=== PATIENT | male | born 1990 | race American Indian/Alaskan Native ===

== ENCOUNTER 2016-12-16 04:09 | Emergency (ER) | payer SELFPAY ==
[2016-12-16] MEDS ORDERED: Lidocaine 2% Viscous Solution 15 ML Cup PO ONE (04:10)
[2016-12-16] MEDS ORDERED: Clindamycin HCl 150 MG Cap PO ONE (04:10)
[2016-12-16] MEDS ORDERED: Acetaminophen/HYDROcodone 325-10 MG Tab PO ONE (04:10)
[2016-12-16 04:17] VITALS: BP 119/76
--- NOTE | 2016-12-16 05:10 | EDM.PDOC ---
ED HPI GENERAL MEDICAL PROBLEM - General Chief Complaint: ENT Problem Stated Complaint: [id number] TOOTH Time Seen by Provider: 12/16/16 04:20 Source of Information: Reports: Patient History Limitations: Reports: No Limitations - History of Present Illness INITIAL COMMENTS - FREE TEXT/NARRATIVE: c/o right lower dental abscess. Seen on and started on amoxicllin, continued pain with alternating tylenol and ibuprofen feels face more swollen Right Lower Tooth/Teeth Pain Score (Numeric/FACES): 7 - Related Data Allergies Allergy/AdvReac Type Severity Reaction Status Date / Time No Known Allergies Allergy Verified 12/17/16 02:11 Home Meds: Home Meds Amoxicillin [IJP: Amoxicillin] 500 mg PO TID 12/16/16 [History] Past Medical History - Past Health History Medical/Surgical History: Denies Medical/Surgical History HEENT History: Reports: None Cardiovascular History: Reports: None Respiratory History: Reports: None Gastrointestinal History: Reports: None Genitourinary History: Reports: None Musculoskeletal History: Reports: None Neurological History: Reports: None Psychiatric History: Reports: None Endocrine/Metabolic History: Reports: None Hematologic History: Reports: None Immunologic History: Reports: None Oncologic (Cancer) History: Reports: None Dermatologic History: Reports: None - Infectious Disease History Infectious Disease History: Reports: None - Past Surgical History Head Surgeries/Procedures: Reports: None HEENT Surgical History: Reports: Eye Surgery Cardiovascular Surgical History: Reports: None Respiratory Surgical History: Reports: None GI Surgical History: Reports: None Male Surgical History: Reports: None Endocrine Surgical History: Reports: None Neurological Surgical History: Reports: None Musculoskeletal Surgical History: Reports: None Oncologic Surgical History: Reports: None Dermatological Surgical History: Reports: None Social & Family History - Family History Family Medical History: Noncontributory - Tobacco Use Smoking Status *Q: Current Every Day Smoker Years of Tobacco use: 2 Packs/Tins Daily: 0.5 Used Tobacco, but Quit: No Second Hand Smoke Exposure: No - Caffeine Use Caffeine Use: Reports: Coffee, Soda - Alcohol Use Days Per Week of Alcohol Use: 0 - Recreational Drug Use Recreational Drug Use: No - Living Situation & Occupation Living situation: Reports: Other Occupation: Employed ED ROS ENT - Review of Systems Review Of Systems: ROS reveals no pertinent complaints other than HPI. ED EXAM, ENT - Physical Exam Exam: See Below Exam Limited By: No Limitations General Appearance: Alert, Mild Distress Eye Exam: Bilateral Eye: EOMI Ears: Normal External Exam, Normal Canal Nose: Normal Inspection Mouth/Throat: Dental Abcess, Dental Pain, Dental Tenderness (right lower molar, gum swollen), Gum Swelling. No: Dental Trauma, Drooling Head: Atraumatic, Normocephalic Neck: Normal Inspection. No: Lymphadenopathy (L), Lymphadenopathy (R) Respiratory/Chest: No Respiratory Distress, Lungs Clear Cardiovascular: Regular Rate, Rhythm, Tachycardia GI/Abdominal: Normal Bowel Sounds Back: Normal Inspection Extremities: Normal Inspection Neurological: Alert, Oriented Skin: Warm, Dry Course - Vital Signs Last Recorded V/S: Last Vital Signs Temp 97.5 F 12/16/16 04:16 Pulse 109 H 12/16/16 04:16 Resp 17 12/16/16 04:16 BP 119/76 12/16/16 04:16 Pulse Ox 100 12/16/16 04:16 - Orders/Labs/Meds Meds: Medications Discontinued Medications Generic Name Dose Route Start Last Admin Trade Name Chance PRN Reason Stop Dose Admin Hydrocodone Bitart/Acetaminophen Confirm 12/16/16 05:14 [place] 325-10 Mg Administered 12/16/16 05:15 Dose 1 tab .ROUTE .STK-MED ONE Hydrocodone Bitart/Acetaminophen 1 tab 12/16/16 04:10 [place] 325-10 Mg PO 12/16/16 04:11 .STK-MED ONE Clindamycin HCl Confirm 12/16/16 05:15 Cleocin Administered 12/16/16 05:16 Dose 300 mg .ROUTE .STK-MED ONE Clindamycin HCl 300 mg 12/16/16 04:10 Cleocin PO 12/16/16 04:11 .STK-MED ONE Lidocaine HCl Confirm 12/16/16 05:15 Xylocaine 2% Viscous Administered 12/16/16 05:16 Dose 15 ml .ROUTE .STK-MED ONE Lidocaine HCl 15 ml 12/16/16 04:10 Xylocaine 2% Viscous PO 12/16/16 04:11 .STK-MED ONE Departure - Departure Time of Disposition: 05:03 Disposition: Home, Self-Care 01 Condition: Fair Clinical Impression: Dental abscess, Dental caries extending into dentin - Discharge Information Instructions: Dental Abscess Referrals: Buckmier,Antoinette F, WAST[facility] RECLAIMER [Primary Care Provider] - Forms: ED Department Discharge Additional Instructions: Stop amoxicillin Clindamycin 300mg every 6 hours for one week Viscous Lidocaine to are around affected tooth 4 times daily as needed Hydrocodone 10/ one at bed #1 Continue to alternate [id number] with Ibuprofen 600mg every 4 hours as needed for pain Follow up with dentist and referral status on Saturday
[2016-12-16] MEDS ORDERED: Acetaminophen/HYDROcodone 325-10 MG Tab ONE (05:14)
[2016-12-16] MEDS ORDERED: Clindamycin HCl 150 MG Cap ONE (05:15)
[2016-12-16] MEDS ORDERED: Lidocaine 2% Viscous Solution 15 ML Cup ONE (05:15)
== END 2016-12-16 05:20 | disposition home or self-care (01) ==
LOC: DL.ED 04:09
DX: K04.7 Periapical abscess without sinus (principal); K02.9 Dental caries, unspecified; F17.210 Nicotine dependence, cigarettes, uncomplicated; Z98.890 Other specified postprocedural states
CPT/HCPCS: 99282; A9270-GY

== ENCOUNTER 2016-12-17 00:17 | Emergency (ER) | payer SELFPAY | END 2016-12-17 00:54 | disposition left against medical advice (07) | LOC: DL.ED 00:17 | DX: Z53.21 Procedure and treatment not carried out due to patient leaving prior to being seen by health care provider (principal) ==

== ENCOUNTER 2017-01-05 17:19 | Emergency (ER) | payer SELFPAY ==
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
[2017-01-05 16:54] LABS: CHLORIDE,CL 103 mmol/L (101-111); SODIUM,NA 141 mmol/L (135-145)
[~2017-01-05 17:19] MED LIST: Diphtheria,Pertussis(Acell),Tetanus Vaccine 0.5 ML SDV IM ONE; HYDROmorphone 1 MG/ML Syringe IVPUSH ONE; Sodium Chloride 0.9% 1,000 ML IV ONE; Sodium Chloride 0.9% 10 ML Syringe FLUSH PRN; ceFAZolin 2 GM in Premix Bag 1 BAG IV ONE
[2017-01-05] MEDS ORDERED: HYDROmorphone 1 MG/ML Syringe IVPUSH ONE (17:41)
== END 2017-01-05 18:08 ==
LOC: DL.ED 17:19
DX: S82.252B Displaced comminuted fracture of shaft of left tibia, initial encounter for open fracture type I or II (principal); S82.232A Displaced oblique fracture of shaft of left tibia, initial encounter for closed fracture; S82.832A Other fracture of upper and lower end of left fibula, initial encounter for closed fracture; S90.01XA Contusion of right ankle, initial encounter; F17.210 Nicotine dependence, cigarettes, uncomplicated; W20.8XXA Other cause of strike by thrown, projected or falling object, initial encounter; Z23 Encounter for immunization
CPT/HCPCS: 36415; 73590; 73600; 80053; 83605; 85025; 90715; 96365; 96375; 96376; 99285; J0690; J1170; J7030; 99284

== ENCOUNTER 2017-01-13 21:49 | Emergency (ER) | payer SELFPAY ==
[2017-01-13] MEDS ORDERED: Acetaminophen/HYDROcodone 325-10 MG Tab PO ONE (21:50)
[2017-01-13 22:03] VITALS: BP 174/91
[2017-01-13] MEDS ORDERED: diphenhydrAMINE 25 MG Tab PO ONE (23:02)
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
[2017-01-13] MEDS ORDERED: Acetaminophen/HYDROcodone 325-10 MG Tab ONE (23:12)
== END 2017-01-13 23:19 | disposition home or self-care (01) ==
LOC: DL.ED 21:49
DX: L29.9 Pruritus, unspecified (principal); T40.4X5A Adverse effect of other synthetic narcotics, initial encounter; F17.210 Nicotine dependence, cigarettes, uncomplicated; S82.202D Unspecified fracture of shaft of left tibia, subsequent encounter for closed fracture with routine healing; W18.11XD Fall from or off toilet without subsequent striking against object, subsequent encounter; Z88.5 Allergy status to narcotic agent
CPT/HCPCS: 99283; A9270

== ENCOUNTER 2017-08-11 22:38 | Emergency (ER) | payer SELFPAY ==
[2017-08-11] MEDS ORDERED: Ketorolac 30 MG/ML SDV IM ONE (23:13)
[2017-08-11] MEDS ORDERED: Cyclobenzaprine 10 MG Tab PO ONE (23:14)
[2017-08-11] MEDS ORDERED: Acetaminophen/HYDROcodone 325-10 MG Tab PO ONE (23:14)
[2017-08-11 23:16] VITALS: BP 155/77
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
== END 2017-08-12 00:07 | disposition home or self-care (01) ==
LOC: DL.ED 22:38
DX: S86.912A Strain of unspecified muscle(s) and tendon(s) at lower leg level, left leg, initial encounter (principal); S82.202D Unspecified fracture of shaft of left tibia, subsequent encounter for closed fracture with routine healing; F17.200 Nicotine dependence, unspecified, uncomplicated; Z88.5 Allergy status to narcotic agent; X50.9XXA Other and unspecified overexertion or strenuous movements or postures, initial encounter
CPT/HCPCS: 73590; 96372; 99283; A9270; J1885

== ENCOUNTER 2020-06-14 05:24 | Emergency (ER) | payer SELFPAY ==
[2020-06-14] MEDS ORDERED: Bacitracin Oint 1 GM U/D Packet TOP ONE (05:42)
[2020-06-14] MEDS ORDERED: Lidocaine 1% 30 ML SDV INJECT ONE (05:42)
[2020-06-14 05:55] VITALS: BP 145/81; PULSE 99
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
== END 2020-06-14 06:25 | disposition home or self-care (01) ==
LOC: DL.ED 05:24
DX: S61.411A Laceration without foreign body of right hand, initial encounter (principal); Z88.5 Allergy status to narcotic agent; Z72.0 Tobacco use; W29.3XXA Contact with powered garden and outdoor hand tools and machinery, initial encounter
CPT/HCPCS: 12002; 99282-25

== ENCOUNTER 2024-07-27 10:03 | Emergency (ER) | payer BC, OTHER ==
[2024-07-27 11:00] LABS: BASOPHILS PERCENT AUTO 0.3 % (0.0-1.0); HEMATOCRIT 43.5 % (40.0-54.0); HEMOGLOBIN 14.9 g/dL (14.0-18.0); LYMPHOCYTES PERCENT AUTO 33.1 % (20.5-50.1); MEAN CORPUSCULAR HEMOGLOBIN 29.8 pg (27.0-34.0); MEAN CORPUSCULAR HGB CONC 34.3 g/dL (33.0-35.0); MONOCYTES PERCENT AUTO 11.8 % (2-8); NEUTROPHILS PERCENT AUTO 51.8 % (42.2-75.2); PLATELET COUNT,PLT 230 10^3/uL (150-450)
[2024-07-27] MEDS: Ondansetron 4 MG/2 ML SDV IVPUSH ONE (11:02)
[2024-07-27] MEDS: Morphine 4 MG/ML Syringe IVPUSH ONE (11:02)
[2024-07-27] MEDS: Sodium Chloride 0.9% 1,000 ML IV SCH (11:03)
[2024-07-27 11:09] LABS: A/G RATIO 0.8; ALBUMIN 3.7 g/dL (3.4-5.0); ANION GAP 16.5 mEq/L (7-13); BILIRUBIN TOTAL 0.5 mg/dL (0.2-1.0); BUN/CREATININE RATIO 14.6 (No establ ref range); CREATININE 0.96 mg/dL (0.70-1.30); EST CRCL DRUG DOSING (CG) 122.53 mL/min; POTASSIUM,K 3.5 mmol/L (3.5-5.1); PROTEIN TOTAL,TP 8.1 g/dL (6.4-8.2)
[2024-07-27] MEDS: Buprenorphine/Naloxone 8-2 MG Tab.SL SL ONE (11:17)
[2024-07-27 13:21] VITALS: BP 139/85; PULSE 72
== END 2024-07-27 13:54 | disposition home or self-care (01) ==
LOC: DL.ED 10:03
DX: F11.23 Opioid dependence with withdrawal (principal); Z88.8 Allergy status to other drugs, medicaments and biological substances; Z79.899 Other long term (current) drug therapy
CPT/HCPCS: 36415; 80053; 85025; 93005; 93010; 96361; 96374; 96375; 99284; 99284-25; A9270; J2270; J2405; J7030